=== PATIENT | male | born 1950 | race Caucasian/White ===

== ENCOUNTER 2016-12-16 05:24 | Inpatient (IN) ==
[2016-11-27 11:55] LABS: Basophils % 0.5 % (0.0-0.8); Eosinophils # 0.2 10*3/uL (0.0-0.87); Eosinophils % 3.1 % (0.00-10.9); Hematocrit 42.6 VOL% (42.0-52.0); Hemoglobin 14.8 GM/DL (14.0-18.0); Immature Granulocytes % 0.2 %; Immature Granulocytes Absolute 0.01 #; Lymphocytes # 1.5 10*3/uL (1.4-4.0); Lymphocytes % 26.6 % (21.2-54.2); Mean Corpuscular HGB Conc 34.7 GM/DL (32-36); Mean Corpuscular Hemoglobin 31 PG (27-34); Mean Platelet Volume 9.4 FL (9.6-12.0); Monocytes # 0.5 10*3/uL (0.11-0.8); Monocytes % 7.8 % (1.7-12.7); Neutrophils # 3.6 10*3/uL (1.4-7.4); Neutrophils % 61.8 % (38.7-73.9); Platelet Count 196 T/CUMM (130-400); Red Blood Count 4.84 MC/CUMM (3.8-5.5); White Blood Count 5.8 T/CUMM (4-12)
[2016-11-27 12:05] LABS: PT Patient Result 10.9 SECS; Partial Thromboplastin Time 26.8 SECS (0-40)
[2016-11-27 12:10] LABS: Apearance,Urine CLEAR (Clear); Bacteria,Urine Occasional /HPF (Few); Bilirubin,Urine Negative (Negative); Blood, Urine Negative (Negative); Glucose,Urine (UA) Negative (Negative); Ketones,Urine Negative (Negative); Mucus,Urine Moderate /LPF (Occasional); Nitrite,Urine Negative (Negative); Protein,Urine Negative; RBC,Urine <1 /HPF (0-4); Squamous Epithelial Cell,Urine Occasional /HPF (0-10); Urine Color Yellow (Yellow); Urine Specific Gravity 1.024 (1.001-1.035); Urine Urobilinogen < 2.0 EU/DL (0.2-1.0); WBC,Urine 1 /HPF (0-6)
--- NOTE | 2016-11-27 12:28 | EKG Report ---
Stationary ECG Study [facility] Test Date: 11/27/2016 12:28:31 PM Pat Name: KARL ALVAREZ Department: Room: Gender: M [employer]: SHARONA IRVING : 1950 Requested by: Jonnie Adams Order Number: [id number] Reading MD: LUCI LEWIS Intervals [place] Rate: 57 P: 74 ID: [id number] QRS: -59 QRSD: 154 T: 52 QT: 448 QTc: 442 Interpretive Statements SINUS RHYTHM MARKED LEFT AXIS DEVIATION, LEFT ANTERIOR FASCICULAR BLOCK RIGHT BUNDLE BRANCH BLOCK Electronically Signed On 11-28-16 12:51:43 CDT by LUCI LEWIS [email or web address]
--- NOTE | 2016-11-27 12:34 | XRay Report ---
Exam: XR chest 2V Date: 11/27/2016 11:39 AM Indication: Respiratory preop evaluation of the chest Comparison: 10/08/2012 Technical: PA lateral Findings: The heart, lungs, mediastinum are unremarkable. The bony structures reveal anterolateral marginal osteophytes. Ossification of costochondral cartilages present. Impression: 1. No acute cortical pathology 2. Degenerative spondylosis change thoracic spine PROCEDURE INTERPRETED AT [facility] DEPARTMENT OF RADIOLOGY Final Report Signed by: Dr. Tr Saab
[2016-11-27 12:36] LABS: Albumin 4.2 G/DL (3.4-5.0); Bilirubin,Total 1.1 MG/DL (0.2-1.0); Calcium 9.9 MG/DL (8.5-10.1); Potassium 4.1 MMOL/L (3.5-5.1); Total Protein 6.8 G/DL (6.4-8.3)
[2016-12-16] MEDS ORDERED: VANCOMYCIN INJ 1,000 MG in SODIUM CHLORIDE 0.9% 250 ML IV ONE (06:00)
[2016-12-16] MEDS: LACTATED RINGERS 1,000 ML IV SCH ×4 (06:10→22:06)
[2016-12-16] MEDS ORDERED: ceFAZolin 1,000 MG VIAL ONE (06:18)
[2016-12-16] MEDS ORDERED: SODIUM CHLORIDE 0.9% 100 ML IV ONE (06:18)
[2016-12-16] MEDS ORDERED: BACITRACIN OINT 0.9 GM PACK TOP ONE (06:29)
--- NOTE | 2016-12-16 06:36 | History and Physical Update ---
History and Physical Update - History and Physical H&P was reviewed, the patient examined and there: are no changes in the patients condition since last H&P was completed.
[2016-12-16] MEDS ORDERED: TRANEXAMIC ACID 1,000 MG/10 ML VIAL IV ONE (06:41)
[2016-12-16] MEDS ORDERED: ONDANSETRON 4 MG/2 ML VIAL IV PRN ×2 (07:17→08:49)
[2016-12-16] MEDS ORDERED: MORPHINE 2 MG/1 ML SYRINGE IV PRN ×2 (07:17)
[2016-12-16] MEDS ORDERED: oxyCODONE IR 5 MG TABLET PO PRN ×2 (07:17)
[2016-12-16] MEDS ORDERED: oxyCODONE/ACETAMINOPHEN 5-325 MG TABLET PO PRN ×2 (07:17)
[2016-12-16] MEDS ORDERED: diphenhydrAMINE CAP 25 MG CAPSULE PO PRN (07:17)
[2016-12-16] MEDS ORDERED: ZALEPLON 5 MG CAPSULE PO PRN (07:17)
[2016-12-16] MEDS ORDERED: MAGNESIUM HYDROXIDE SUSP 30 ML UDCUP PO PRN (07:17)
--- NOTE | 2016-12-16 08:35 | Operative Note ---
Date of procedure: 12/16/16 Procedure: DIAGNOSIS: Right hip primary osteoarthritis PROCEDURE: Right total hip arthroplasty (CPT#84630) SURGEON: Jazmine ASST: Rashid Rojas ANESTHESIA: Spinal PROCEDURE and FINDINGS: After adequate anesthesia was induced, the patient was placed in lateral decubitus position. Left lower extremities prepped and draped in usual sterile fashion. Posteriolateral approach to the hip was made. Skin, subcutaneous tissue and deep fascia was incised longitudinally. Gluteus scott muscle belly was split in line with its fibers. Piriformis, external rotators and capsule were taken down as a single layer as an inverted L shaped capsulotomy. Hip was dislocated. Templated femoral neck cut was made. Acetabulum was prepared by sequentially reaming to 55 mm. A 56 mm Continuum acetabular shell was press-fit with excellent stability. 1 6.5 millimeter screw was placed with an excellent bite. 32 mm neutral longevity liner was placed with a dome hole plug. Femur was prepared sequentially with the box osteotome, canal finder and sequential broaches to 14. Components were trialed. A size 14 Versys fiber metal tapered stem was press-fit. A 32+0 mm head was placed. The component was stable posteriorly and anteriorly. Capsule was repaired with #5 Tycron. Deep fascia was closed with 0 Vicryl figure-of- eight suture. Subcutaneous tissue was closed deep with a 2-0 Vicryl runner and superficially with 3-0 interrupted buried sutures. Skin was closed with pallavi. Bacitracin and a sterile occlusive dressing was applied. Surgeon / Physician: Jonnie Lucero Jr. Results - Labs CBC & BMP: 11/27/16 11:46 11/27/16 11:48 Discharge Plan - Discharge Medications No Action Aspirin [Ecotrin] 81 mg PO DAILY Multivitamin [Multivitamins] 1 each PO DAILY Calcium Carbonate [Calcium] 500 mg PO DAILY - Follow Up or Referral - Forms/Instructions
[2016-12-16 08:41] LABS: Apearance,Urine CLEAR (Clear); Bilirubin,Urine Negative (Negative); Blood, Urine Negative (Negative); Glucose,Urine (UA) Negative (Negative); Ketones,Urine Negative (Negative); Mucus,Urine Occasional /LPF (Occasional); Nitrite,Urine Negative (Negative); Protein,Urine Negative; RBC,Urine 3 /HPF (0-4); Urine Color Yellow (Yellow); Urine Specific Gravity 1.023 (1.001-1.035); Urine Urobilinogen < 2.0 EU/DL (0.2-1.0); WBC,Urine <1 /HPF (0-6)
[2016-12-16] MEDS ORDERED: HYDROmorphone 2 MG/1 ML VIAL ONE (08:47)
[2016-12-16] MEDS ORDERED: SEVOFLURANE 1 UNIT/15 MINUTE INH ONE (08:47)
[2016-12-16] MEDS ORDERED: ONDANSETRON 4 MG/2 ML VIAL ONE (08:47)
[2016-12-16] MEDS ORDERED: fentaNYL 100 MCG/2 ML VIAL ONE (08:48)
[2016-12-16] MEDS ORDERED: MIDAZOLAM 2 MG/2 ML VIAL ONE (08:48)
[2016-12-16] MEDS: HYDROmorphone 2 MG/1 ML VIAL IV PRN ×4 (08:48→09:03)
[2016-12-16] MEDS ORDERED: ATROPINE 0.4 MG/1 ML VIAL ONE (08:48)
[2016-12-16] MEDS: DOCUSATE SODIUM 100 MG CAPSULE PO SCH ×2 (09:50→22:01)
[2016-12-16] MEDS: MULTIVITAMIN (CENTRUM) TABLET PO SCH (09:57)
[2016-12-16] MEDS: KETOROLAC 30 MG/1 ML VIAL IV SCH ×3 (10:04→21:58)
--- NOTE | 2016-12-16 10:21 | XRay Report ---
XR hip 1V RT Indication: Joint replacement (right hip) Comparison: None Technique: Single frontal view of the right hip Findings: Status post total right hip arthroplasty. No evidence of immediate hardware failure. Superficial skin pallavi overlie the hip. Subcutaneous and joint space air noted which is likely postoperative. IMPRESSION: Status post total right hip arthroplasty. PROCEDURE INTERPRETED AT [facility] DEPARTMENT OF RADIOLOGY Final Report Signed by: Dr Shon Medley
[2016-12-16] MEDS: ACETAMINOPHEN 500 MG TABLET PO SCH ×3 (11:01→23:53)
--- NOTE | 2016-12-16 13:23 | Anesthesia Post-Op ---
Anesthesia Post OP - Post Ansesthetic Evaluation Patient seen in post op: Yes Resp: within normal limits CV: within normal limits Mental: within normal limits Temp: within normal limits [id number]: within normal limits Nausea and Vomiting: within normal limits Pain: within normal limits
--- NOTE | 2016-12-16 14:46 | Orthopedic Progress Note ---
Orthopedics - Subjective Interval history: Mr. Toribio is ready to work with physical therapy. Dressing clean, dry and intact. Right lower extremities neurovascularly unchanged. Continue per protocol. Exam - Constitutional Vitals: Period Temp Pulse Resp BP Sys/Patel Pulse Ox Last 24 Hr 97 F-98.6 F 59-74 16-20 100-190/67-97 96-100 Results - Labs CBC & BMP: 11/27/16 11:46 11/27/16 11:48
[2016-12-16] MEDS: ceFAZolin 2,000 MG in PREMIX 1 EACH IV SCH ×2 (15:05→23:54)
[2016-12-17] MEDS ORDERED: FONDAPARINUX 2.5 MG/0.5 ML SYRINGE SUBCUT SCH (01:18)
[2016-12-17] MEDS: KETOROLAC 30 MG/1 ML VIAL IV SCH (03:14)
[2016-12-17] MEDS: ACETAMINOPHEN 500 MG TABLET PO SCH (05:34)
[2016-12-17 05:57] LABS: Calcium 7.8 MG/DL (8.5-10.1); Osmolality,Calculated 287.1 MOS/KG (273-304); Potassium 4.2 MMOL/L (3.5-5.1)
[2016-12-17] MEDS: LACTATED RINGERS 1,000 ML IV SCH ×2 (07:30→07:31)
[2016-12-17 07:39] VITALS: BP 141/75
--- NOTE | 2016-12-17 07:46 | Discharge Summary ---
Hospital Course - Hospital Course Hospital Course: Mr. Toribio was admitted after undergoing an uncomplicated right total hip replacement. Received perioperative DVT and antimicrobial prophylaxis. Received physical therapy. He was discharged home postoperative day #1 in stable condition. Right lower extremities neurovascularly unchanged. Dressing is dry. Discharge instructions were reviewed. Discharge Plan - Discharge Data Disposition: Disch To Home/Self Care Condition at Discharge: Stable Discharge Diet: advance to your usual diet Hygiene: may shower Weight Bearing at Discharge: weight bear as tolerated Driving: not until seen by doctor - Discharge Medications No Action Aspirin [Ecotrin] 81 mg PO DAILY Multivitamin [Multivitamins] 1 each PO DAILY Calcium Carbonate [Calcium] 500 mg PO DAILY - Follow Up or Referral - Forms/Instructions Additional Discharge Instructions: Posterior hip precautions for 3 months. Daily dry dressing changes. Arrange for walker and bedside commode for home use. Wear DONAVAN hose for 1 month. Follow-up appointment in 10-14 days. Take aspirin 325 mg daily for 21 days, then resume baby aspirin daily. Prescription for Percocet 5 with 30 tablets. Set up outpatient physical therapy 3 times a week for 4 weeks. Exam - Constitutional Vitals: Period Temp Pulse Resp BP Sys/Patel Pulse Ox Last 24 Hr 97.2 F-100.0 F 59-100 16-20 100-163/67-97 94-100 Discharge Results Procedures and tests throughout hospitalization: Pending Orders 12/17/16 04:39 Comp Blood Count Auto Diff IN AM 12/18/16 04:00 Comp Blood Count Auto Diff IN AM 12/19/16 04:00 Comp Blood Count Auto Diff IN AM Labs on day of discharge: Labs from last 24 hours 12/17/16 12/16/16 04:39 08:34 Sodium 142 Potassium 4.2 Chloride 107 Carbon Dioxide 28 Anion Gap 11.2 BUN 21 H Creatinine 1.40 H GFR Calculation 60 BUN/Creatinine Ratio 15.00 Glucose 128 H Calculated Osmolality 287.1 Calcium 7.8 L Urine Color Yellow Urine Appearance Clear Urine pH 6.0 Ur Specific [place] 1.023 Urine Protein Negative Urine Glucose (UA) Negative Urine Ketones Negative Urine Blood Negative Urine Nitrate Negative Urine Bilirubin Negative Urine Urobilinogen < 2.0 H Urine Leukocytes Negative Urine RBC 3 Urine WBC <1 Urine Mucus Occasional Ur Culture Indicated? Not indicated DS: Provider Date of admission: 12/16/16 05:24 Primary care physician: Chemo Tellez Attending physician on admission: Jonnie Lucero Jr., Consults: 12/16/16 07:17 Consult to Case Mgmt/Social Srvs [CONS] Routine Reason for Case Mgmt/Social Srvs: Rehab Home Health Equipment Consult Comment: Bedside Commode, CPM, Walker Consult to Occupational Therapy [CONS] Routine Reason for Occupational Therapy: Evaluate and Treat Consult Comment: ADL's Consult to Physical Therapy [CONS] Routine Reason for Physical Therapy: Evaluate and Treat Gait Training Start Therapy: Today Consult Comment: hip precautions, wbat Discharging clinician: Jonnie Lucero Jr., Expected date of discharge: 12/17/16
[2016-12-17] MEDS: MULTIVITAMIN (CENTRUM) TABLET PO SCH (08:08)
[2016-12-17] MEDS: DOCUSATE SODIUM 100 MG CAPSULE PO SCH (08:08)
[2016-12-17 08:11] LABS: Basophils % 0.2 % (0.0-0.8); Eosinophils # 0.1 10*3/uL (0.0-0.87); Eosinophils % 0.8 % (0.00-10.9); Hematocrit 35.2 VOL% (42.0-52.0); Hemoglobin 12.2 GM/DL (14.0-18.0); Immature Granulocytes % 0.4 %; Immature Granulocytes Absolute 0.04 #; Lymphocytes # 1.4 10*3/uL (1.4-4.0); Mean Corpuscular HGB Conc 34.7 GM/DL (32-36); Mean Corpuscular Hemoglobin 31 PG (27-34); Mean Corpuscular Volume 88.9 FL (87-102); Mean Platelet Volume 10.3 FL (9.6-12.0); Monocytes % 9.1 % (1.7-12.7); Neutrophils # 8.1 10*3/uL (1.4-7.4); Neutrophils % 76.5 % (38.7-73.9); Platelet Count 159 T/CUMM (130-400); Red Blood Count 3.96 MC/CUMM (3.8-5.5); Red Cell Distribution Width 12.7 % (9.3-17.3); White Blood Count 10.5 T/CUMM (4-12)
--- NOTE | 2016-12-17 09:27 | Pathology Report from [facility] ---
[facility] [place]ESSION # : [id number] PATIENT NAME : Karl Toribio ORDERING DR : MARIA ELENA TABOR MD CLINICAL HX: RT hip osteoarthritis POST-OP DX: Same SPECIMEN INFO: RT hip bone & tissue GROSS DESCRIPTION: The specimen is received in formalin labeled with the patients name and consists of a femoral head measuring 5.0 x 5.3 x 5.5 cm. The articular surface is focally degenerative with an area of subchondral eburnation seen measuring 4.0 x 2.2 cm. The cut surface is smooth with no softening appreciated. Received separately in the container are multiple fragments of hemorrhagic bone and soft tissue measuring 2.0 x 5.0 cm in aggregate. Aircraft Mechanic tissue submitted in one cassette following decalcification. DIAGNOSIS FOR KARL TORIBIO: RIGHT HIP BONE & TISSUE: Gross and microscopic findings consistent with osteoarthritis. No evidence of malignancy. COLLECTED DATE: 12/16/2016 [facility] REPORT DATE: 12/17/2016 ELECTRONICALLY SIGNED BY: Samanta Watters III, M.D. 12/17/2016 - 9:00:42 [id number]
[2016-12-17] MEDS ORDERED: CELECOXIB 200 MG CAPSULE PO SCH (13:18)
== END 2016-12-17 11:37 | disposition home or self-care (01) | DRG 470 ==
LOC: N.SDSINP 05:24 → N.3E 09:34
PROVIDERS: ADMIT Orthopaedic Surgery; ATTEND Orthopaedic Surgery

== ENCOUNTER 2017-07-09 05:25 | Inpatient (IN) ==
[2017-06-09 10:39] LABS: Basophils # 0.1 10*3/uL (0.0-0.2); Basophils % 0.9 % (0.0-0.8); Eosinophils # 0.2 10*3/uL (0.0-0.87); Eosinophils % 3.1 % (0.00-10.9); Hematocrit 42.8 VOL% (42.0-52.0); Hemoglobin 14.5 GM/DL (14.0-18.0); Immature Granulocytes % 0.3 %; Immature Granulocytes Absolute 0.02 #; Lymphocytes # 1.6 10*3/uL (1.4-4.0); Mean Corpuscular HGB Conc 33.9 GM/DL (32-36); Mean Corpuscular Hemoglobin 30 PG (27-34); Mean Corpuscular Volume 87.2 FL (87-102); Mean Platelet Volume 9.4 FL (9.6-12.0); Monocytes # 0.6 10*3/uL (0.11-0.8); Monocytes % 8.3 % (1.7-12.7); Neutrophils # 4.4 10*3/uL (1.4-7.4); Neutrophils % 64.4 % (38.7-73.9); Platelet Count 215 T/CUMM (130-400); Red Blood Count 4.91 MC/CUMM (3.8-5.5); Red Cell Distribution Width 12.8 % (9.3-17.3); White Blood Count 6.8 T/CUMM (4-12)
[2017-06-09 10:43] LABS: Apearance,Urine CLEAR (Clear); Bilirubin,Urine Negative (Negative); Blood, Urine Negative (Negative); Glucose,Urine (UA) Negative (Negative); Ketones,Urine Negative (Negative); Nitrite,Urine Negative (Negative); Protein,Urine Negative; RBC,Urine 1 /HPF (0-4); Urine Color Yellow (Yellow); Urine Specific Gravity 1.019 (1.001-1.035); Urine Urobilinogen < 2.0 EU/DL (0.2-1.0); WBC,Urine <1 /HPF (0-6)
[2017-06-09 10:48] LABS: PT Patient Result 10.3 SECS; Partial Thromboplastin Time 25.6 SECS (0-40)
[2017-06-09 11:28] LABS: Albumin 4.1 G/DL (3.4-5.0); Bilirubin,Total 0.4 MG/DL (0.2-1.0); Calcium 8.8 MG/DL (8.5-10.1); Osmolality,Calculated 283.3 MOS/KG (273-304); Potassium 4.2 MMOL/L (3.5-5.1); Total Protein 6.9 G/DL (6.4-8.3)
[~2017-07-09 05:25] MED LIST: VANCOMYCIN INJ 1,000 MG in SODIUM CHLORIDE 0.9% 250 ML IV ONE; ceFAZolin 2,000 MG in PREMIX 1 EACH IV ONE
[2017-07-09] MEDS ORDERED: ceFAZolin 2,000 MG in PREMIX 1 EACH IV ONE (07:00)
[2017-07-09] MEDS ORDERED: VANCOMYCIN INJ 1,000 MG in SODIUM CHLORIDE 0.9% 250 ML IV ONE (07:00)
[2017-07-09] MEDS ORDERED: LACTATED RINGERS 1,000 ML IV SCH (07:30)
[2017-07-09] MEDS ORDERED: FAMOTIDINE 20 MG TABLET ONE (07:35)
[2017-07-09] MEDS ORDERED: VANCOMYCIN 1,000 MG VIAL ONE (07:35)
[2017-07-09] MEDS ORDERED: FAMOTIDINE 20 MG TABLET PO STA (07:37)
[2017-07-09] MEDS ORDERED: GABAPENTIN 400 MG CAPSULE PO STA (10:38)
[2017-07-09] MEDS ORDERED: ACETAMINOPHEN 500 MG TABLET PO STA ×2 (10:39→10:43)
[2017-07-09] MEDS ORDERED: ZALEPLON 5 MG CAPSULE PO PRN (12:04)
[2017-07-09] MEDS ORDERED: oxyCODONE IR 5 MG TABLET PO PRN ×2 (12:04)
[2017-07-09] MEDS ORDERED: ONDANSETRON 4 MG/2 ML VIAL IV PRN ×2 (12:04→12:43)
[2017-07-09] MEDS ORDERED: diphenhydrAMINE CAP 25 MG CAPSULE PO PRN (12:04)
[2017-07-09] MEDS ORDERED: MORPHINE 2 MG/1 ML SYRINGE IV PRN ×2 (12:04)
[2017-07-09] MEDS ORDERED: MAGNESIUM HYDROXIDE SUSP 30 ML UDCUP PO PRN (12:04)
[2017-07-09] MEDS: HYDROmorphone 2 MG/1 ML VIAL IV PRN ×4 (12:30→13:06)
[2017-07-09] MEDS: LACTATED RINGERS 1,000 ML IV SCH ×2 (14:30→19:34)
[2017-07-09] MEDS: KETOROLAC 30 MG/1 ML VIAL IV SCH ×2 (14:40→21:15)
[2017-07-09] MEDS: ceFAZolin 2,000 MG in PREMIX 1 EACH IV SCH ×2 (17:28→23:06)
[2017-07-09] MEDS: DOCUSATE SODIUM 100 MG CAPSULE PO SCH (21:15)
[2017-07-10] MEDS: KETOROLAC 30 MG/1 ML VIAL IV SCH ×2 (02:58→10:23)
[2017-07-10] MEDS: LACTATED RINGERS 1,000 ML IV SCH (03:30)
[2017-07-10 05:26] LABS: Basophils % 0.5 % (0.0-0.8); Eosinophils # 0.2 10*3/uL (0.0-0.87); Eosinophils % 1.8 % (0.00-10.9); Hematocrit 34.7 VOL% (42.0-52.0); Hemoglobin 11.8 GM/DL (14.0-18.0); Immature Granulocytes % 0.4 %; Immature Granulocytes Absolute 0.03 #; Lymphocytes # 1.2 10*3/uL (1.4-4.0); Lymphocytes % 14.2 % (21.2-54.2); Mean Corpuscular Hemoglobin 30 PG (27-34); Mean Corpuscular Volume 87.6 FL (87-102); Monocytes # 1.1 10*3/uL (0.11-0.8); Monocytes % 13.1 % (1.7-12.7); Neutrophils # 5.8 10*3/uL (1.4-7.4); Platelet Count 162 T/CUMM (130-400); Red Blood Count 3.96 MC/CUMM (3.8-5.5); White Blood Count 8.3 T/CUMM (4-12)
[2017-07-10 05:57] LABS: Osmolality,Calculated 281.4 MOS/KG (273-304)
[2017-07-10] MEDS ORDERED: FONDAPARINUX 2.5 MG/0.5 ML SYRINGE SUBCUT SCH (06:05)
[2017-07-10] MEDS ORDERED: MULTIVITAMIN (CENTRUM) TABLET PO SCH (09:00)
[2017-07-10] MEDS: DOCUSATE SODIUM 100 MG CAPSULE PO SCH (10:13)
[2017-07-10 11:36] VITALS: BP 161/64
== END 2017-07-10 12:30 | disposition home or self-care (01) | DRG 470 ==
LOC: N.OR 05:25 → N.SDSINP 05:27 → N.3E 12:04
PROVIDERS: ADMIT Orthopaedic Surgery; ATTEND Orthopaedic Surgery

== ENCOUNTER 2020-09-10 11:56 | Inpatient (IN) ==
[2020-09-10 12:51] LABS: Basophils % 0.2 % (0.0-0.8); Eosinophils % 0.1 % (0.00-10.9); Hematocrit 42.4 VOL% (42.0-52.0); Hemoglobin 14.2 GM/DL (14.0-18.0); Immature Granulocytes % 0.6 %; Immature Granulocytes Absolute 0.09 #; Lymphocytes # 0.8 10*3/uL (1.4-4.0); Lymphocytes % 5.9 % (21.2-54.2); Mean Corpuscular HGB Conc 33.5 GM/DL (32-36); Mean Corpuscular Volume 88.7 FL (87-102); Mean Platelet Volume 9.3 FL (9.6-12.0); Monocytes % 3.7 % (1.7-12.7); Neutrophils % 89.5 % (38.7-73.9); Platelet Count 201 T/CUMM (130-400); Red Blood Count 4.78 MC/CUMM (3.8-5.5); Red Cell Distribution Width 12.3 % (9.3-17.3); White Blood Count 13.9 T/CUMM (4-12)
[2020-09-10 13:26] LABS: Albumin 4.8 G/DL (3.4-5.0); Bilirubin,Total 0.7 MG/DL (0.2-1.0); CKMB % 3.2 %; Calcium 9.9 MG/DL (8.5-10.1); Osmolality,Calculated 286.4 MOS/KG (273-304); Total Protein 7.6 G/DL (6.4-8.2)
[2020-09-10 13:27] LABS: Troponin I 0.753 NG/ML (0.00-0.045)
[2020-09-10] MEDS ORDERED: ZALEPLON 5 MG CAPSULE PO PRN (16:09)
[2020-09-10] MEDS ORDERED: GLUCAGON 1 MG VIAL IM PRN (16:09)
[2020-09-10] MEDS ORDERED: ONDANSETRON 4 MG/2 ML VIAL IV PRN (16:09)
[2020-09-10] MEDS ORDERED: hydrALAZINE 20 MG/1 ML VIAL IV PRN (16:09)
[2020-09-10] MEDS ORDERED: DEXTROSE 50% 25 GM/50 ML VIAL IV PRN (16:09)
[2020-09-10] MEDS ORDERED: ENOXAPARIN 40 MG/0.4 ML SYRINGE SUBCUT SCH (16:30)
[2020-09-10 18:01] LABS: Bilirubin,Urine Negative (Negative); Blood, Urine Negative (Negative); Glucose,Urine (UA) Negative (Negative); Ketones,Urine 20 mg/dL (Negative); Mucus,Urine Occasional /LPF (Occasional); Nitrite,Urine Negative (Negative); Protein,Urine Negative; RBC,Urine 7 /HPF (0-4); Urine Appearance CLEAR (Clear); Urine Color Yellow (Yellow); Urine Specific Gravity 1.023 (1.001-1.035); Urine Urobilinogen < 2.0 EU/DL (0.2-1.0)
[2020-09-10] MEDS ORDERED: cefTRIAXone 1,000 MG VIAL ONE (18:15)
[2020-09-10] MEDS: SODIUM CHLORIDE 0.9% 1,000 ML IV SCH (18:17)
[2020-09-10] MEDS ORDERED: ASPIRIN 325 MG TABLET ONE (20:59)
[2020-09-10] MEDS ORDERED: carvediloL 6.25 MG TABLET PO SCH (21:20)
[2020-09-10] MEDS ORDERED: ENOXAPARIN 40 MG/0.4 ML SYRINGE SUBCUT ONE (21:20)
[2020-09-10] MEDS: ASPIRIN 325 MG TABLET PO SCH (21:23)
[2020-09-10] MEDS: cefTRIAXone 1,000 MG in SODIUM CHLORIDE 0.9% 100 ML IV SCH (22:41)
[2020-09-10] MEDS: carvediloL 3.125 MG TABLET PO SCH (22:41)
[2020-09-11] MEDS: SODIUM CHLORIDE 0.9% 1,000 ML IV SCH ×3 (03:59→13:51)
[2020-09-11 05:31] LABS: Basophils % 0.3 % (0.0-0.8); Eosinophils # 0.1 10*3/uL (0.0-0.87); Eosinophils % 1.1 % (0.00-10.9); Hematocrit 41.5 VOL% (42.0-52.0); Immature Granulocytes % 1.2 %; Immature Granulocytes Absolute 0.12 #; Lymphocytes # 1.3 10*3/uL (1.4-4.0); Lymphocytes % 12.9 % (21.2-54.2); Mean Corpuscular HGB Conc 33.7 GM/DL (32-36); Mean Corpuscular Volume 89.1 FL (87-102); Mean Platelet Volume 9.8 FL (9.6-12.0); Monocytes % 7.5 % (1.7-12.7); Platelet Count 190 T/CUMM (130-400); Red Blood Count 4.66 MC/CUMM (3.8-5.5); Red Cell Distribution Width 12.7 % (9.3-17.3); White Blood Count 10.4 T/CUMM (4-12)
[2020-09-11 06:11] LABS: Osmolality,Calculated 279.7 MOS/KG (273-304); Potassium 3.8 MMOL/L (3.5-5.1); Risk Ratio 4.08; Thyroid Stimulating Hormone 0.851 uIU/ml (0.358-3.74); VLDL CHOLESTEROL 16.2 MG/DL
[2020-09-11] MEDS ORDERED: NITROGLYCERIN SL 0.4 MG TABLET SL PRN (06:58)
[2020-09-11] MEDS ORDERED: MORPHINE 4 MG/1 ML VIAL IV PRN (06:58)
[2020-09-11] MEDS ORDERED: MAGNESIUM SULF RIDER 2 GM/50 ML PREMIX IV PRN (07:26)
[2020-09-11] MEDS ORDERED: POTASSIUM CHLORIDE RIDER 10 MEQ in PREMIX 1 EACH IV PRN (07:26)
[2020-09-11] MEDS ORDERED: LIDOCAINE 1% 20 ML VIAL ONE (08:55)
[2020-09-11] MEDS: CHOLECALCIFEROL 1,000 UNIT TABLET PO SCH (08:56)
[2020-09-11] MEDS: MULTIVITAMIN (CENTRUM) TABLET PO SCH (08:56)
[2020-09-11] MEDS: ASPIRIN 325 MG TABLET PO SCH (08:56)
[2020-09-11] MEDS: carvediloL 3.125 MG TABLET PO SCH ×2 (08:56→21:52)
[2020-09-11] MEDS: PANTOPRAZOLE 40 MG TABLET PO SCH (08:56)
[2020-09-11] MEDS ORDERED: ENOXAPARIN 80 MG/0.8 ML SYRINGE SUBCUT SCH (09:00)
[2020-09-11] MEDS ORDERED: DIAZEPAM 5 MG TABLET PO ONE (09:00)
[2020-09-11] MEDS ORDERED: diphenhydrAMINE CAP 50 MG CAPSULE PO ONE (09:00)
[2020-09-11] MEDS ORDERED: MIDAZOLAM 2 MG/2 ML VIAL ONE (09:13)
[2020-09-11] MEDS ORDERED: fentaNYL 100 MCG/2 ML VIAL ONE (09:14)
[2020-09-11] MEDS ORDERED: HEPARIN 5,000 UNIT/1 ML VIAL ONE (09:58)
[2020-09-11] MEDS ORDERED: TIROFIBAN 5,000 MCG/100 ML PREMIX IV ONE (10:21)
[2020-09-11] MEDS ORDERED: TIROFIBAN 5,000 MCG/100 ML PREMIX IV SCH (10:26)
[2020-09-11] MEDS ORDERED: TICAGRELOR 90 MG TABLET ONE (11:21)
[2020-09-11 13:16] LABS: CKMB % 7.6 %
[2020-09-11 13:20] LABS: Troponin I 35.4 NG/ML (0.00-0.045)
[2020-09-11] MEDS: ACETAMINOPHEN 325 MG TABLET PO PRN (14:37)
[2020-09-11 20:51] LABS: CKMB % 6.9 %
[2020-09-11 20:54] LABS: Troponin I 35.7 NG/ML (0.00-0.045)
[2020-09-11] MEDS ORDERED: ROSUVASTATIN 20 MG TABLET PO SCH (21:00)
[2020-09-11] MEDS: TICAGRELOR 90 MG TABLET PO SCH (21:52)
[2020-09-11] MEDS: cefTRIAXone 1,000 MG in SODIUM CHLORIDE 0.9% 100 ML IV SCH (22:20)
[2020-09-12] MEDS: ACETAMINOPHEN 325 MG TABLET PO PRN (00:30)
[2020-09-12 05:44] LABS: Basophils % 0.5 % (0.0-0.8); Eosinophils # 0.2 10*3/uL (0.0-0.87); Eosinophils % 2.4 % (0.00-10.9); Hematocrit 38.5 VOL% (42.0-52.0); Hemoglobin 12.7 GM/DL (14.0-18.0); Immature Granulocytes % 0.5 %; Immature Granulocytes Absolute 0.04 #; Lymphocytes # 1.3 10*3/uL (1.4-4.0); Lymphocytes % 14.5 % (21.2-54.2); Mean Corpuscular Volume 90.2 FL (87-102); Mean Platelet Volume 9.6 FL (9.6-12.0); Monocytes % 9.5 % (1.7-12.7); Neutrophils % 72.6 % (38.7-73.9); Platelet Count 172 T/CUMM (130-400); Red Blood Count 4.27 MC/CUMM (3.8-5.5); Red Cell Distribution Width 12.9 % (9.3-17.3); White Blood Count 8.7 T/CUMM (4-12)
[2020-09-12 06:06] LABS: Calcium 8.4 MG/DL (8.5-10.1); Osmolality,Calculated 281.4 MOS/KG (273-304); Potassium 3.9 MMOL/L (3.5-5.1)
[2020-09-12 06:08] LABS: CKMB % 4.9 %
[2020-09-12 06:09] LABS: Troponin I 28.6 NG/ML (0.00-0.045)
[2020-09-12] MEDS: PANTOPRAZOLE 40 MG TABLET PO SCH (08:41)
[2020-09-12] MEDS: carvediloL 3.125 MG TABLET PO SCH (08:41)
[2020-09-12] MEDS: TICAGRELOR 90 MG TABLET PO SCH (08:41)
[2020-09-12] MEDS: CHOLECALCIFEROL 1,000 UNIT TABLET PO SCH (08:41)
[2020-09-12] MEDS: MULTIVITAMIN (CENTRUM) TABLET PO SCH (08:41)
[2020-09-12] MEDS ORDERED: KETOROLAC 30 MG/1 ML VIAL IV ONE (08:44)
[2020-09-12] MEDS ORDERED: ASPIRIN CHEW 81 MG TABLET PO SCH (09:00)
[2020-09-12 11:52] VITALS: BP 125/69
== END 2020-09-12 14:56 | disposition home or self-care (01) | DRG 247 ==
LOC: N.ED 11:56 → N.EDINP 11:56 → N.TELES 18:54
PROVIDERS: ADMIT Internal Medicine Cardiovascular Disease; ATTEND Internal Medicine Cardiovascular Disease
PROC: CLCCHCL (ICD-10-PCS; 2020-09-11 10:15)